=== PATIENT | male | born 1935 | race Caucasian/White ===

== ENCOUNTER 2019-05-03 11:54 | Emergency (ER) | payer MEDICARE ==
[~2019-05-03] VITALS: Ht 177.8 cm; Wt 93.0 kg
--- NOTE | 2019-05-03 12:00 | NUR ---
Placed in room 01 . Placed on lunchroom monitor, blood pressure machine and pulse oximeter. To gown for exam. Side rails up.
--- NOTE | 2019-05-03 12:00 | NUR ---
Arrived via [facility] ambulance due to finding of bradycardia in clinic. Patient denies compliants at this time other having been brought to the emergency room, rather than being sent home. Placed in room 1. Placed on satellite project site monitor, blood pressure machine and pulse oximeter. To gown for exam. Side rails up. Report given to Isabella GIBSON.
[2019-05-03 12:01] VITALS: BP_SYST 148
--- NOTE | 2019-05-03 12:10 | NUR ---
PATIENT CAME IN FROM 'S OFFICE. PATIENT GETTING WEEKLY PROCRIATE SHOT WHEN NOTICE PATIENT HR JARED. HR IS RUNNING AT 40'S. PATIENT DENIES SOB AND DIZZINESS. PATIENT DENIES NAUSEA AND VOMITING. PATIENT DENIES PAIN. PATIENT ALERT AND ORIENTED X4. PATIENT HAS HISTORY OF HTN BUT CANT RECAL WHICH MEDS HE TAKES.
--- NOTE | 2019-05-03 12:13 | NUR ---
ER Dr. ART at bedside examining patient.
--- NOTE | 2019-05-03 12:30 | NUR ---
LAB AT BEDSIDE COLLECTING BLOOD .
[2019-05-03 12:48] LABS: BASOPHILS % (AUTO) 0.6 % (0.0-2.0); EOSINOPHILS # (AUTO) 0.2 K/uL (0.0-0.4); EOSINOPHILS % (AUTO) 3.5 % (0.0-4.0); HEMATOCRIT 28.1 % (36-54); HEMOGLOBIN 9.4 g/dL (14.0-18.0); LYMPHOCYTES # (AUTO) 0.7 K/uL (1.0-5.5); LYMPHOCYTES % (AUTO) 12.8 % (20.5-51.5); MEAN CORPUSCULAR HEMOGLOBIN 33 pg (27-31); MEAN CORPUSCULAR HGB CONC 33 % (32-36); MEAN CORPUSCULAR VOLUME 98 fL (79.0-98.0); MONOCYTES # (AUTO) 0.7 K/uL (0.0-1.0); MONOCYTES % (AUTO) 12.9 % (1.7-9.3); NEUTROPHILS # (AUTO) 3.6 K/uL (1.8-7.7); NEUTROPHILS % (AUTO) 70.2 % (40.0-70.0); PLATELET COUNT (AUTO) 119 K/uL (130-430); RED BLOOD CELL COUNT(AUTO) 2.86 MIL/uL (4.2-6.2); WHITE BLOOD COUNT (AUTO) 5.1 K/uL (4.8-10.8)
--- NOTE | 2019-05-03 12:50 | NUR ---
PATIENT ASSISTED TO REST ROOM AND BACK TO BED. PATIENT HAS STEADY GAIT WITH CANE. PATIENT NOT COMPLAINING OF DIZZINESS.
--- NOTE | 2019-05-03 12:58 | NUR ---
PATIENT GETTING X RAY IN BED.
[2019-05-03 13:05] LABS: ANION GAP 2 (5-15); CALCIUM 9.8 mg/dL (8.4-11.0); CHLORIDE 102 mmol/L (98-107); CREATININE 1.94 mg/dL (0.55-1.30); GLUCOSE 60 mg/dL (70-99); POTASSIUM 4.3 mmol/L (3.5-5.1); SODIUM SERUM 137 mmol/L (136-145); UREA NITROGEN, BLOOD 58 mg/dL (8-21)
[2019-05-03 13:11] LABS: ALANINE AMINOTRANSFERASE 19 U/L (12-78); ALBUMIN 3.3 g/dL (3.4-4.8); ASPARTATE AMINOTRANSFERASE 19 U/L (10-37); TOTAL BILIRUBIN 0.6 mg/dL (0.0-1.0)
[2019-05-03 13:16] LABS: DIGOXIN < 0.1 ng/mL (0.80-2.00)
--- NOTE | 2019-05-03 14:03 | NUR ---
Viviana hein in [facility] - 05/03/19 at [email or web address] ART AT BEDSIDE TALKING TO PATIENT AND .
--- NOTE | 2019-05-03 14:04 | NUR ---
DR ART AT BEDSIDE TALKING TO PATIENT AND .
--- NOTE | 2019-05-03 14:25 | NUR ---
DR ART AT BEDSIDE TALKING TO AND PATIENT.
--- NOTE | 2019-05-03 14:36 | NUR ---
PATIENT HUNGRY. STATES OKAY FOR PT TO EAT. PATIENT EATING NOW IN BED.
--- NOTE | 2019-05-03 16:30 | NUR ---
DR ART AT BEDSIDE TALKING TO PATIENT.
[2019-05-03 16:58] VITALS: BP_SYST 150
== END 2019-05-03 16:58 | disposition home or self-care (01) ==
LOC: SED 11:54
DX: S80.212A Abrasion, left knee, initial encounter (principal); S80.211A Abrasion, right knee, initial encounter; R00.0 Tachycardia, unspecified; E11.9 Type 2 diabetes mellitus without complications; I10 Essential (primary) hypertension; W01.0XXA Fall on same level from slipping, tripping and stumbling without subsequent striking against object, initial encounter; Y93.89 Activity, other specified; Y92.89 Other specified places as the place of occurrence of the external cause; Y99.8 Other external cause status
CPT/HCPCS: 36415; 71045; 80053; 80162-TC; 82550-TC; 83880; 84484; 85025; 93005; 99284

== ENCOUNTER 2020-02-17 18:08 | Emergency (ER) | payer MEDICARE ==
[~2020-02-17] VITALS: Ht 175.3 cm; Wt 122.5 kg
[2020-02-17 18:29] VITALS: BP_SYST 168
[2020-02-17 19:04] LABS: BASOPHILS % (AUTO) 0.4 % (0.0-2.0); EOSINOPHILS % (AUTO) 0.5 % (0.0-4.0); HEMATOCRIT 27.5 % (36-54); HEMOGLOBIN 9.1 g/dL (14.0-18.0); LYMPHOCYTES # (AUTO) 0.7 K/uL (1.0-5.5); LYMPHOCYTES % (AUTO) 11.8 % (20.5-51.5); MEAN CORPUSCULAR HEMOGLOBIN 32 pg (27-31); MEAN CORPUSCULAR HGB CONC 33 % (32-36); MEAN CORPUSCULAR VOLUME 97 fL (79.0-98.0); MONOCYTES # (AUTO) 0.8 K/uL (0.0-1.0); MONOCYTES % (AUTO) 14.8 % (1.7-9.3); NEUTROPHILS % (AUTO) 72.5 % (40.0-70.0); PLATELET COUNT (AUTO) 133 K/uL (130-430); RED BLOOD CELL COUNT(AUTO) 2.85 MIL/uL (4.2-6.2); RED CELL DISTRIBUTION WIDTH 15.8 % (9.0-15.0); WHITE BLOOD COUNT (AUTO) 5.6 K/uL (4.8-10.8)
[2020-02-17 19:06] LABS: INR 1.1 (0.80-1.20)
[2020-02-17 19:16] LABS: BILIRUBIN,URINE NEGATIVE (NEGATIVE); BLOOD, URINE 2+ (NEGATIVE); COLOR,URINE YELLOW (YELLOW); GLUCOSE,URINE TRACE (NEGATIVE); KETONES,URINE NEGATIVE (NEGATIVE); NITRITE, URINE POSITIVE (NEGATIVE); PROTEIN URINE 2+ (NEGATIVE); UROBILINOGEN,URINE 0.2 (0.2-1.0)
[2020-02-17 19:18] LABS: ANION GAP 8 (5-15); CHLORIDE 101 mmol/L (98-107); POTASSIUM 4.1 mmol/L (3.5-5.1); SODIUM SERUM 138 mmol/L (136-145)
[2020-02-17 19:19] LABS: ALANINE AMINOTRANSFERASE 24 U/L (12-78); ASPARTATE AMINOTRANSFERASE 30 U/L (10-37); CALCIUM 8.7 mg/dL (8.4-11.0); CREATININE 1.97 mg/dL (0.55-1.30); GLUCOSE 187 mg/dL (70-99); TOTAL BILIRUBIN 0.6 mg/dL (0.0-1.0); UREA NITROGEN, BLOOD 53 mg/dL (8-21)
[2020-02-17 19:20] LABS: ALBUMIN 3.2 g/dL (3.4-4.8); ALCOHOL, BLOOD < 3 mg/dL (<10)
[2020-02-17 19:25] LABS: CLARITY/URINE HAZY (CLEAR); LEUKOCYTE ESTERASE ,URINE 3+ (NEGATIVE)
[2020-02-17 19:26] LABS: BACTERIA,URINE MODERATE /HPF (None Seen); RBC,URINE 0-3 /HPF (0-3); WBC,URINE 80-100 /HPF (0-3)
[2020-02-17 19:27] LABS: MUCUS,URINE None Seen /LPF (None Seen)
[2020-02-17 19:29] LABS: BARBITURATE, URINE NEGATIVE (NEG <=200); BENZODIAZEPINE, URINE NEGATIVE (NEG <=150); CANNABINOID, URINE NEGATIVE (NEG <=50); COCAINE, URINE NEGATIVE (NEG <=150); METHAMPHETAMINES SCREEN,URINE NEGATIVE (NEG <=500); OPIATE, URINE NEGATIVE (NEG <=100); PHENCYCLIDINE SCREEN,URINE NEGATIVE (NEG <=25); UR TRICYCLIC ANTIDEPRESSANTS NEGATIVE (NEG <=300); URINE AMPHETAMINE NEGATIVE (NEG <=500); URINE METHADONE NEGATIVE (NEG <=200); URINE OXYCODONE SCREEN NEGATIVE (NEG <=100); URINE PROPOXYPHENE SCREEN NEGATIVE (NEG <=300)
[2020-02-17 19:41] LABS: ACETONE, SERUM NEGATIVE (NEGATIVE)
[2020-02-17] MEDS ORDERED: ASPIRIN 325 MG TABLET PO ONE (20:00)
[2020-02-17] MEDS ORDERED: cefTRIAXone 1 GM IVPB PREMIX 50 ML IV ONE (20:00)
[2020-02-18 00:52] VITALS: BP_SYST 156
== END 2020-02-18 00:50 | disposition short-term general hospital (02) ==
LOC: SED 18:08
DX: I63.9 Cerebral infarction, unspecified (principal); N39.0 Urinary tract infection, site not specified; I10 Essential (primary) hypertension; E11.9 Type 2 diabetes mellitus without complications
CPT/HCPCS: 36415; 70450; 71045; 80053; 80307; 81000; 82009; 82140; 82550; 82962; 83605; 83880; 84484; 85025; 85610; 85730; 87040; 87086; 87186; 93005; 99285; G0482

== ENCOUNTER 2020-08-04 18:56 | Emergency (ER) | payer MEDICARE ==
[~2020-08-04] VITALS: Ht 172.7 cm; Wt 95.3 kg
[2020-08-04 19:04] VITALS: BP_SYST 121
[2020-08-04 19:37] LABS: BASOPHILS % (AUTO) 0.2 % (0.0-2.0); EOSINOPHILS % (AUTO) 0.2 % (0.0-4.0); HEMATOCRIT 34.2 % (36-54); HEMOGLOBIN 10.9 g/dL (14.0-18.0); LYMPHOCYTES # (AUTO) 0.5 K/uL (1.0-5.5); LYMPHOCYTES % (AUTO) 8.2 % (20.5-51.5); MEAN CORPUSCULAR HEMOGLOBIN 31 pg (27-31); MEAN CORPUSCULAR HGB CONC 32 % (32-36); MEAN CORPUSCULAR VOLUME 97 fL (79.0-98.0); MONOCYTES # (AUTO) 0.4 K/uL (0.0-1.0); MONOCYTES % (AUTO) 5.7 % (1.7-9.3); NEUTROPHILS # (AUTO) 5.6 K/uL (1.8-7.7); NEUTROPHILS % (AUTO) 85.7 % (40.0-70.0); PLATELET COUNT (AUTO) 156 K/uL (130-430); RED BLOOD CELL COUNT(AUTO) 3.55 MIL/uL (4.2-6.2); RED CELL DISTRIBUTION WIDTH 15.9 % (9.0-15.0); WHITE BLOOD COUNT (AUTO) 6.5 K/uL (4.8-10.8)
[2020-08-04] MEDS ORDERED: ASPIRIN 81 MG TAB.CHEW PO ONE (20:00)
[2020-08-04] MEDS ORDERED: NITROGLYCERIN 1 INCH (GM) OINT. TD ONE (20:00)
[2020-08-04] MEDS ORDERED: INSULIN REGULAR, HUMAN 10 UNITS/0.1 ML INJ IVP ONE ×3 (20:00→23:15)
[2020-08-04] MEDS ORDERED: NACL 0.9% 1,000 ML IV ONE (20:00)
[2020-08-04] MEDS ORDERED: ASPIRIN 81 MG TAB.CHEW ONE (20:07)
[2020-08-04 20:10] LABS: ANION GAP 8 (5-15); CALCIUM 9.2 mg/dL (8.4-11.0); CHLORIDE 98 mmol/L (98-107); CREATININE 2.28 mg/dL (0.55-1.30); POTASSIUM 5.1 mmol/L (3.5-5.1); SODIUM SERUM 134 mmol/L (136-145); UREA NITROGEN, BLOOD 55 mg/dL (8-21)
[2020-08-04 20:11] LABS: PROTHROMBIN TIME 10.4 SECS (9.5-12.5)
[2020-08-04 20:15] LABS: ALANINE AMINOTRANSFERASE 35 U/L (12-78); ALBUMIN 3.3 g/dL (3.4-4.8); ASPARTATE AMINOTRANSFERASE 23 U/L (10-37); TOTAL BILIRUBIN 0.3 mg/dL (0.0-1.0)
[2020-08-04 20:18] LABS: GLUCOSE 492 mg/dL (70-99)
[2020-08-04] MEDS ORDERED: NITR0.4T47 SL (20:20)
[2020-08-04] MEDS ORDERED: FURO-150 PO (20:20)
[2020-08-04] MEDS ORDERED: POTA20TA83 PO (20:20)
[2020-08-04] MEDS ORDERED: HYT1 PO (20:20)
[2020-08-04] MEDS ORDERED: CALC200T47 PO (20:20)
[2020-08-04] MEDS ORDERED: ISO10 PO (20:20)
[2020-08-04] MEDS ORDERED: ATEN-166 PO (20:20)
[2020-08-04] MEDS ORDERED: HUM10VIA SQ (20:20)
[2020-08-04] MEDS ORDERED: LOSA25TA3 PO (20:20)
[2020-08-04] MEDS ORDERED: TROS20TA2 PO (20:20)
[2020-08-04] MEDS ORDERED: AMLO5TAB4 PO (20:20)
[2020-08-04] MEDS ORDERED: LIP10 PO (20:20)
[2020-08-04] MEDS ORDERED: NEU100 PO (20:20)
[2020-08-04] MEDS ORDERED: MULT-1117 PO (20:20)
[2020-08-04 20:25] LABS: BILIRUBIN,URINE NEGATIVE (NEGATIVE); BLOOD, URINE 2+ (NEGATIVE); CLARITY/URINE CLOUDY (CLEAR); COLOR,URINE YELLOW (YELLOW); GLUCOSE,URINE 3+ (NEGATIVE); KETONES,URINE NEGATIVE (NEGATIVE); LEUKOCYTE ESTERASE ,URINE 1+ (NEGATIVE); NITRITE, URINE NEGATIVE (NEGATIVE); PH,URINE 5.5 (5.0-8.0); PROTEIN URINE TRACE (NEGATIVE); UROBILINOGEN,URINE 0.2 (0.2-1.0)
[2020-08-04 20:46] LABS: BACTERIA,URINE MANY /HPF (None Seen); WBC,URINE >100 /HPF (0-3)
[2020-08-04] MEDS ORDERED: cefTRIAXone 1 GM IVPB PREMIX 50 ML IV ONE ×2 (21:15→21:20)
[2020-08-04] MEDS ORDERED: INSU100V9 SQ (22:12)
[2020-08-04] MEDS ORDERED: AMOX-426 PO (22:14)
[2020-08-04] MEDS ORDERED: SENN-104 PO (22:15)
[2020-08-05 00:36] VITALS: BP_SYST 128
== END 2020-08-05 00:36 | disposition home or self-care (01) ==
LOC: SED 18:56
DX: D64.9 Anemia, unspecified (principal); N39.0 Urinary tract infection, site not specified; I10 Essential (primary) hypertension; E11.65 Type 2 diabetes mellitus with hyperglycemia; E11.29 Type 2 diabetes mellitus with other diabetic kidney complication; F03.90 Unspecified dementia, unspecified severity, without behavioral disturbance, psychotic disturbance, mood disturbance, and anxiety; N28.9 Disorder of kidney and ureter, unspecified; Z79.899 Other long term (current) drug therapy; Z79.4 Long term (current) use of insulin; Z85.51 Personal history of malignant neoplasm of bladder
CPT/HCPCS: 80053; 81000; 82550; 82962; 83880; 85025; 85610; 85730; 87040; 87086; 84484; 36415; 93005; 71045; 99285; 96361; 96365; 96375; 96376; 83605; J0696; J7030